=== PATIENT | female | born 2000 ===

== ENCOUNTER 2025-07-27 07:49 | Inpatient (IN) | payer OTHER ==
[~2025-07-27] VITALS: Ht 119.4 cm; Wt 52.8 kg
[2025-07-27] VITALS (40 sets, daily range): BP systolic 94–145; BP diastolic 52–128; TEMP 98.8–100.4; O2SAT 96–100
[2025-07-27] MEDS ORDERED: ONDANSETRON 4 MG/2 ML VIAL IV PRN (08:45)
[2025-07-27] MEDS ORDERED: MAGNESIUM HYDROXIDE 30 ML LIQUID UDC PO PRN (08:45)
[2025-07-27 09:22] LABS: ABG BASE EXCESS -3.6 mmol/L (-2.0-3.0); ABG HCO3 19.8 mmol/L (21.0-28.0); ABG PCO2 29.5 mmHg (32.0-45.0); ABG PH 7.444 (7.350-7.450); ABG PO2 283.6 mmHg (83.0-108.0); ABG SITE RIGHT RADIAL; ABG TOTAL HEMOGLOBIN 9.5 G/dL (12.0-16.0); AaDO2 99.7 mmHg; FIO2 80.0 %; SET RATE, BG 20.0; VT, ABG 350 mL
[2025-07-27 10:01] LABS: PLATELET COUNT (AUTO) 118 K/uL (179-408); RED BLOOD CELL COUNT(AUTO) 3.14 MIL/uL (3.63-4.92); RED CELL DISTRIBUTION WIDTH 16.7 % (12.3-17.7); WHITE BLOOD COUNT (AUTO) 14.2 K/uL (3.8-11.8)
[2025-07-27] MEDS: IV LACTATED RINGERS SOLUTION 1,000 ML IV PRN (10:47)
[2025-07-27 10:59] LABS: ASPARTATE AMINOTRANSFERASE 29 U/L (15-37); CREATININE 0.8 mg/dL (0.6-1.3); SODIUM SERUM 145 mmol/L (136-145); TOTAL PROTEIN, SERUM 7.4 g/dL (6.4-8.2); UREA NITROGEN, BLOOD 16 mg/dL (7-18)
[2025-07-27] MEDS ORDERED: PHEN20EL8 GT (12:46)
[2025-07-27] MEDS ORDERED: LACT1CAP25 GT (12:47)
[2025-07-27] MEDS ORDERED: LACO200T2 GT (12:47)
[2025-07-27] MEDS ORDERED: GLYC1DRO EACHEYE (12:48)
[2025-07-27] MEDS ORDERED: POLY17PO4 GT (12:49)
[2025-07-27] MEDS ORDERED: LEVE500S9 GT (12:50)
[2025-07-27] MEDS ORDERED: CHLO473M5 PO (13:12)
[2025-07-27] MEDS ORDERED: LEVA0.6320 NEB ×2 (13:14→13:36)
[2025-07-27] MEDS ORDERED: [UNRECOGNIZED DRUG - CODE] NEB (13:14)
[2025-07-27] MEDS ORDERED: MIDO10TA GT (13:15)
[2025-07-27] MEDS ORDERED: MICO45CR18 TOP (13:17)
[2025-07-27] MEDS ORDERED: METO5TAB87 GT (13:19)
[2025-07-27] MEDS ORDERED: BACL10TA GT (13:21)
[2025-07-27] MEDS ORDERED: HYDR10TA37 GT (13:21)
[2025-07-27] MEDS ORDERED: PYRI50CA GT (13:22)
[2025-07-27] MEDS ORDERED: MULT9LIQ6 GT (13:23)
[2025-07-27] MEDS ORDERED: METO25TA6 GT (13:24)
[2025-07-27] MEDS ORDERED: FERR325T24 GT (13:25)
[2025-07-27] MEDS ORDERED: FAMO40OR5 GT (13:26)
[2025-07-27] MEDS ORDERED: ASCO500C18 GT (13:27)
[2025-07-27] MEDS ORDERED: ERGO400C GT (13:27)
[2025-07-27] MEDS ORDERED: ACET-2070 GT (13:29)
[2025-07-27] MEDS ORDERED: DIPH25CA83 GT (13:30)
[2025-07-27] MEDS ORDERED: FLUT16SP16 BNOSTRILS (13:31)
[2025-07-27] MEDS ORDERED: MAGN400O6 GT (13:37)
[2025-07-27] MEDS ORDERED: BISA10SU61 RC (13:40)
[2025-07-27] MEDS ORDERED: LORA2DIS5 IM (13:41)
[2025-07-27] MEDS ORDERED: DIAZEPAM RECTAL GEL RC (13:43)
[2025-07-27] MEDS ORDERED: ONDA-104 GT (13:44)
[2025-07-27] MEDS: POTASSIUM CHLORIDE 20 MEQ POWDER PACKET GT ONE (13:45)
[2025-07-27] MEDS ORDERED: LEVALBUTEROL HCL NEB 0.63 MG/3 ML NEBU NEB PRN (14:00)
[2025-07-27] MEDS ORDERED: FLUTICASONE PROP NASAL SPRAY 16 GM BOTTLE NS PRN (14:00)
[2025-07-27] MEDS ORDERED: LORAZEPAM 2 MG/1 ML VIAL IV PRN (14:00)
[2025-07-27] MEDS ORDERED: BISACODYL 10 MG SUPP.RECT RC PRN (14:00)
[2025-07-27] MEDS ORDERED: LACTOBACILLUS ACIDOPHILUS GT SCH (14:00)
[2025-07-27] MEDS ORDERED: METOCLOPRAMIDE HCL 5 MG TABLET GT PRN (14:00)
[2025-07-27] MEDS ORDERED: CULTURELLE CAPSULE PO SCH (14:30)
[2025-07-27] MEDS: CULTURELLE CAPSULE GT SCH (16:23)
[2025-07-27] MEDS: ACETAMINOPHEN 325 MG TABLET PO PRN (16:24)
[2025-07-27] MEDS: ERYTHROMYCIN 0.5% OPHT OINT 3.5 GM TUBE EACHEYE SCH (17:26)
[2025-07-27] MEDS: ACETYLCYSTEINE 10% 4ML VIAL NEB SCH (19:36)
[2025-07-27] MEDS: LEVALBUTEROL HCL NEB 0.63 MG/3 ML NEBU NEB SCH (19:37)
[2025-07-27] MEDS ORDERED: PHENOBARBITAL GT SCH (21:00)
[2025-07-27] MEDS ORDERED: LEVETIRACETAM GT SCH (21:00)
[2025-07-27] MEDS: CHLORHEXIDINE GLUCONATE 15 ML MOUTHWASH MM SCH (21:45)
[2025-07-27] MEDS: BACLOFEN 10 MG TABLET GT SCH (21:45)
[2025-07-27] MEDS: LACOSAMIDE 50 MG TABLET GT SCH (21:46)
[2025-07-27] MEDS: PHENOBARBITAL 32.4 MG TABLET GT SCH (21:46)
[2025-07-27] MEDS: METOPROLOL TARTRATE 25 MG TABLET GT SCH (21:48)
[2025-07-28] VITALS (17 sets, daily range): BP systolic 106–128; BP diastolic 75–97; TEMP 97.8–98.4; O2SAT 96–100
[2025-07-28 05:37] LABS: PLATELET COUNT (AUTO) 140 K/uL (179-408); RED BLOOD CELL COUNT(AUTO) 2.76 MIL/uL (3.63-4.92); RED CELL DISTRIBUTION WIDTH 16.1 % (12.3-17.7); WHITE BLOOD COUNT (AUTO) 9.9 K/uL (3.8-11.8)
[2025-07-28 05:50] LABS: ASPARTATE AMINOTRANSFERASE 13.0 U/L (15-37); CREATININE 0.6 mg/dL (0.6-1.3); SODIUM SERUM 145.0 mmol/L (136-145); TOTAL PROTEIN, SERUM 6.8 g/dL (6.4-8.2); UREA NITROGEN, BLOOD 9.0 mg/dL (7-18)
[2025-07-28] MEDS ORDERED: PANTOPRAZOLE SODIUM 40 MG TABLET.DR PO SCH (07:00)
[2025-07-28] MEDS: PANTOPRAZOLE ORAL SUSPENSION 40 MG SUSPDR.PKT PO SCH (07:30)
[2025-07-28] MEDS: COLISTIMETHATE SODIUM 150 MG VIAL INH SCH (08:08)
[2025-07-28] MEDS: POTASSIUM CHLORIDE 20 MEQ POWDER PACKET GT ONE (08:16)
[2025-07-28] MEDS: ASCORBIC ACID 500 MG TABLET GT SCH (08:18)
[2025-07-28] MEDS: MAGNESIUM SULFATE/D5W 100 ML IV SCH (08:23)
[2025-07-28] MEDS: POTASSIUM CHLORIDE 50 ML IV SCH (08:23)
[2025-07-28] MEDS: CHOLECALCIFEROL 400 UNITS TABLET GT SCH (08:24)
[2025-07-28] MEDS: FERROUS SULFATE 300 MG/5 ML LIQUID UDC GT SCH (08:24)
[2025-07-28] MEDS: PYRIDOXINE HCL 100 MG TABLET GT SCH (08:26)
[2025-07-28] MEDS: CEFEPIME IV SCH (08:55)
[2025-07-28] MEDS: DEXTROSE 5% IV SCH (08:55)
[2025-07-28] MEDS ORDERED: FERROUS SULFATE 325 MG TABEC PO SCH (09:00)
[2025-07-28] MEDS ORDERED: MULTIVITAMINS 5 ML LIQUID UDC GT SCH (09:00)
[2025-07-28] MEDS ORDERED: FAMOTIDINE GT SCH (09:00)
[2025-07-28] MEDS ORDERED: CHOLECALCIFEROL GT SCH (09:00)
[2025-07-28] MEDS ORDERED: Medication Not On Formulary EA (Multivit &Minerals/Ferrous Fum (Multivitamin Liquid) 5 M GT SCH (09:00)
[2025-07-28] MEDS: MULTIVITAMINS,THERAPEUTIC TABLET GT SCH (09:24)
[2025-07-28] MEDS: CEFEPIME HCL 2 GM in IV DEXTROSE 5% 100 ML IV SCH ×2 (09:25→17:02)
[2025-07-28] MEDS: VANCOMYCIN IV 1,000 MG in IV DEXTROSE 5% 250 ML IV ONE (12:56)
[2025-07-28 13:57] LABS: CREATININE 0.6 mg/dL (0.6-1.3); SODIUM SERUM 141.0 mmol/L (136-145); UREA NITROGEN, BLOOD 8.0 mg/dL (7-18)
[2025-07-28 16:28] LABS: *BILIRUBIN,URIN NEGATIVE (NEGATIVE); *BLOOD, URINE TRACE (NEGATIVE); *CLARITY,URINE CLEAR (CLEAR); *COLOR,URINE LIGHT YELLOW (YELLOW); *KETONES,URINE NEGATIVE (NEGATIVE); *PROTEIN,URINE 1+ (NEGATIVE); *UROBILINOGEN,URINE 0.2 E.U./dl (NORMAL); LEUKOCYTE ESTERASE ,URINE TRACE (NEGATIVE); NITRITE, URINE NEGATIVE (NEGATIVE); UGLUCOSE NEGATIVE (NEGATIVE)
[2025-07-28 16:36] LABS: SQUAMOUS EPITHELIAL CELL,UR FEW /HPF (NONE SEEN)
[2025-07-28] MEDS: MAGNESIUM HYDROXIDE 30 ML LIQUID UDC GT PRN (21:49)
[2025-07-29] VITALS (26 sets, daily range): BP systolic 108–138; BP diastolic 66–101; TEMP 98.1–99.1; O2SAT 97–100
[2025-07-29 05:10] LABS: PLATELET COUNT (AUTO) 158 K/uL (179-408); RED BLOOD CELL COUNT(AUTO) 3.01 MIL/uL (3.63-4.92); RED CELL DISTRIBUTION WIDTH 15.7 % (12.3-17.7); WHITE BLOOD COUNT (AUTO) 8.7 K/uL (3.8-11.8)
[2025-07-29 05:27] LABS: CREATININE 0.5 mg/dL (0.6-1.3); SODIUM SERUM 139 mmol/L (136-145); UREA NITROGEN, BLOOD 5 mg/dL (7-18)
[2025-07-29] MEDS: IV 0.9% SODIUM CHLORID+ 20 KCL 1,000 ML IV SCH (09:00)
[2025-07-29] MEDS: POTASSIUM CHLORIDE 50 ML IV SCH (09:22)
[2025-07-29] MEDS: MAGNESIUM SULFATE/D5W 100 ML IV SCH (09:23)
[2025-07-29] MEDS: POTASSIUM CHLORIDE 20 MEQ POWDER PACKET GT ONE (09:50)
[2025-07-29] MEDS ORDERED: VANCOMYCIN IV 1,000 MG in IV DEXTROSE 5% 250 ML IV SCH (11:00)
[2025-07-29] MEDS ORDERED: OSMOLITE 1.2 CAL 1,000 ML LIQUID GT PRN ×2 (12:00→16:42)
[2025-07-29] MEDS: VANCOMYCIN HCL 750 MG in IV DEXTROSE 5% 250 ML IV SCH (12:07)
[2025-07-29] MEDS: OSMOLITE 1.2 CAL 1,000 ML LIQUID GT PRN (13:29)
[2025-07-29 15:16] LABS: CREATININE 0.5 mg/dL (0.6-1.3); SODIUM SERUM 139 mmol/L (136-145); UREA NITROGEN, BLOOD 5 mg/dL (7-18)
[2025-07-29] MEDS ORDERED: IV 0.9% SODIUM CHLORID+ 20 KCL 1,000 ML ONE (23:39)
[2025-07-30] VITALS (20 sets, daily range): BP systolic 93–128; BP diastolic 51–85; TEMP 97.1–98.9; O2SAT 91–100
[2025-07-30 05:19] LABS: PLATELET COUNT (AUTO) 211 K/uL (179-408); RED BLOOD CELL COUNT(AUTO) 3.19 MIL/uL (3.63-4.92); RED CELL DISTRIBUTION WIDTH 15.7 % (12.3-17.7); WHITE BLOOD COUNT (AUTO) 9.5 K/uL (3.8-11.8)
[2025-07-30 05:29] LABS: CREATININE 0.5 mg/dL (0.6-1.3); SODIUM SERUM 143 mmol/L (136-145); UREA NITROGEN, BLOOD 8 mg/dL (7-18)
[2025-07-30] MEDS: OSMOLITE 1.2 CAL 1,000 ML LIQUID GT PRN (08:39)
[2025-07-30] MEDS: CEFEPIME HCL 2 GM in IV DEXTROSE 5% 100 ML IV SCH (09:32)
[2025-07-30] MEDS: MAGNESIUM OXIDE 400 MG TABLET PO ONE (10:55)
[2025-07-30] MEDS: POTASSIUM CHLORIDE 20 MEQ POWDER PACKET GT ONE (10:55)
[2025-07-30] MEDS: VANCOMYCIN IV 1,000 MG in IV DEXTROSE 5% 250 ML IV ONE (13:12)
[2025-07-31] VITALS (8 sets, daily range): BP systolic 90–146; BP diastolic 48–88; TEMP 98–99.6; O2SAT 98–100
[2025-07-31] MEDS ORDERED: VANCOMYCIN HCL 750 MG in IV DEXTROSE 5% 250 ML IV ONE (05:00)
[2025-07-31 06:37] LABS: PLATELET COUNT (AUTO) 222 K/uL (179-408); RED BLOOD CELL COUNT(AUTO) 3.14 MIL/uL (3.63-4.92); RED CELL DISTRIBUTION WIDTH 15.6 % (12.3-17.7); WHITE BLOOD COUNT (AUTO) 8.5 K/uL (3.8-11.8)
[2025-07-31 07:01] LABS: CREATININE 0.4 mg/dL (0.6-1.3); SODIUM SERUM 144 mmol/L (136-145); UREA NITROGEN, BLOOD 10 mg/dL (7-18)
[2025-07-31] MEDS: REMEDY ESSENTIAL ZINC PASTE 113 GM TP PRN (09:21)
[2025-07-31] MEDS: MAGNESIUM OXIDE 400 MG TABLET GT SCH (11:20)
[2025-08-01 01:39] VITALS: TEMP 98.1; O2SAT 100
[2025-08-01] MEDS ORDERED: VANCOMYCIN HCL 750 MG in IV DEXTROSE 5% 250 ML IV ONE (05:00)
[2025-08-01 05:36] VITALS: BP 112/55; TEMP 98.9; O2SAT 100
[2025-08-01 07:06] LABS: CREATININE 0.4 mg/dL (0.6-1.3); SODIUM SERUM 141 mmol/L (136-145); UREA NITROGEN, BLOOD 11 mg/dL (7-18)
[2025-08-01 07:43] VITALS: BP 106/53; TEMP 97.4; O2SAT 100
[2025-08-01] MEDS ORDERED: PHEN32.46 GT (09:18)
[2025-08-01] MEDS ORDERED: PYRI100T18 GT (09:18)
[2025-08-01] MEDS ORDERED: LACT-89 GT (09:18)
[2025-08-01] MEDS ORDERED: LEVE100S GT (09:18)
[2025-08-01] MEDS ORDERED: LORAZEPAM 2 MG/1 ML VIAL IV PRN (09:45)
[2025-08-01] MEDS: MAGNESIUM OXIDE 400 MG TABLET GT ONE (10:20)
[2025-08-01 10:38] VITALS: BP 111/65; TEMP 98.5; O2SAT 98
== END 2025-08-01 15:10 | DRG 720 ==
LOC: MEDSURG3 07:49 → TELE3 08:03 → CCU 08:15 → TELE-TD3 07-30 18:17 → MEDSURG3 07-31 10:47 → TELE3 07-31 11:13 → MEDSURG3 08-01 08:07
PROC: 5A1955Z Respiratory Ventilation, Greater than 96 Consecutive Hours (ICD-10-PCS; principal; 2025-07-27)
PROC: 02HV33Z Insertion of Infusion Device into Superior Vena Cava, Percutaneous Approach (ICD-10-PCS; principal; 2025-07-27)
DX: A41.9 Sepsis, unspecified organism (principal); J95.851 Ventilator associated pneumonia; R65.21 Severe sepsis with septic shock; J96.21 Acute and chronic respiratory failure with hypoxia; Z99.11 Dependence on respirator [ventilator] status; J15.1 Pneumonia due to Pseudomonas; G93.41 Metabolic encephalopathy; R13.10 Dysphagia, unspecified; Z66 Do not resuscitate; Z93.0 Tracheostomy status; R65.20 Severe sepsis without septic shock; B96.89 Other specified bacterial agents as the cause of diseases classified elsewhere; N39.0 Urinary tract infection, site not specified; Q75.009 Craniosynostosis, unspecified; D68.59 Other primary thrombophilia; Q90.9 Down syndrome, unspecified; G40.909 Epilepsy, unspecified, not intractable, without status epilepticus; D64.9 Anemia, unspecified; E87.6 Hypokalemia; L25.3 Unspecified contact dermatitis due to other chemical products; Z93.1 Gastrostomy status; Z74.01 Bed confinement status; Z88.2 Allergy status to sulfonamides; Z87.01 Personal history of pneumonia (recurrent)
CPT/HCPCS: 36415; 36569; 36600; 70450; 71045; 80184; 83605; 83690; 83735; 83921; 84100; 84443; 84484; 85025; 86850; 86900; 86901; 87040; 87086; 87278; 93005; 93307; 94002; 94003; 94640; 94760; 95819; 99082-TC; A4606; A4663; G0378; J0692; J0770; J2060; J3373; J3475; J3480; J3535; J7050; J7120; J7614; J8597